=== PATIENT | male | born 1995 | race Caucasian/White ===

== ENCOUNTER → 2019-05-20 | Outpatient (CLI) | payer OTHER ==
[~2019-05-20] MED LIST: SULF-222 PO
--- NOTE | 2019-05-20 15:11 | Diagnostic Imaging Report ---
INDICATION: Injury to the right shoulder. TIME OF EXAM: 2:07 PM FINDINGS: Two views of the right clavicle were obtained. Acromioclavicular alignment is normal. There is no evidence of clavicular fracture or acromioclavicular separation. Glenohumeral alignment is normal. IMPRESSION: No acute bony abnormality is detected. Dictated by: Dictated on workstation # [id number]
== END ==
LOC: RAD 13:48
PROVIDERS: ATTEND Nurse Practitioner Family
DX: S49.91XA Unspecified injury of right shoulder and upper arm, initial encounter (principal)
CPT/HCPCS: 73000

== ENCOUNTER 2019-09-20 05:50 | Emergency (ER) | payer SELFPAY ==
[~2019-09-20] VITALS: Ht 175 cm; Wt 76.0 kg
[2019-09-20 06:44] LABS: BASOPHILS % (AUTO) 0 % (0-10); EOSINOPHILS # (AUTO) 0.2 10^3/uL (0.0-0.3); EOSINOPHILS % (AUTO) 2 % (0-10); HEMATOCRIT 45 % (40-54); HEMOGLOBIN 15.2 G/DL (13.3-17.7); LYMPHOCYTES # (AUTO) 1.5 X 10^3 (1.0-4.0); LYMPHOCYTES % (AUTO) 13 % (12-44); MEAN CORPUSCULAR HEMOGLOBIN 27 PG (25-34); MEAN CORPUSCULAR HGB CONC 34 G/DL (32-36); MEAN CORPUSCULAR VOLUME 80 FL (80-99); MEAN PLATELET VOLUME 11.1 FL (7.4-10.4); MONOCYTES # (AUTO) 0.7 X 10^3 (0.0-1.0); MONOCYTES % (AUTO) 6 % (0-12); NEUTROPHILS # (AUTO) 8.9 X 10^3 (1.8-7.8); NEUTROPHILS % (AUTO) 79 % (42-75); PLATELET COUNT 288 10^3/uL (130-400); RED CELL DISTRIBUTION WIDTH 13.5 % (10.0-14.5); WHITE BLOOD COUNT 11.4 10^3/uL (4.3-11.0)
[2019-09-20] MEDS ORDERED: FAMOTIDINE 20MG/2ML IV (PEPCID) IVP ONE (06:45)
[2019-09-20] MEDS ORDERED: ONDANSETRON 4 MG/2 ML (SDV) Z0FRAN IVP ONE (06:45)
[2019-09-20] MEDS ORDERED: fentaNYL INJECTION 100 MCG/2 ML AMP IVP ONE ×2 (06:45→08:45)
[2019-09-20 06:49] LABS: BILIRUBIN,URINE NEGATIVE (NEGATIVE); CLARITY,URINE CLEAR; COLOR,URINE YELLOW; GLUCOSE, URINE (UA) NEGATIVE (NEGATIVE); KETONES,URINE 2+ (NEGATIVE); LEUKOCYTE ESTERASE ,URINE NEGATIVE (NEGATIVE); NITRITE,URINE NEGATIVE (NEGATIVE); PROTEIN,URINE NEGATIVE (NEGATIVE)
[2019-09-20 06:55] LABS: ALANINE AMINOTRANSFERASE 16 U/L (0-55); ALBUMIN 4.9 GM/DL (3.2-4.5); ALKALINE PHOSPHATASE 74 U/L (40-136); BUN/CREATININE RATIO 9; CALCIUM 9.9 MG/DL (8.5-10.1); CARBON DIOXIDE 23 MMOL/L (21-32); CHLORIDE 106 MMOL/L (98-107); CREATININE SERUM 1.03 MG/DL (0.60-1.30); GFR ESTIMATED > 60; GLUCOSE 116 MG/DL (70-105); LIPASE 14 U/L (8-78); POTASSIUM 3.7 MMOL/L (3.6-5.0); SODIUM 141 MMOL/L (135-145)
[2019-09-20 07:16] LABS: AMORPHOUS SEDIMENT,UR RARE AMOR URATES /LPF; BACTERIA,URINE NEGATIVE /HPF; WBC,URINE 0-2 /HPF
--- NOTE | 2019-09-20 08:41 | Diagnostic Imaging Report ---
PROCEDURE: US Gallbladder. TECHNIQUE: Multiple real-time grayscale images were obtained over the right upper quadrant in various projections. INDICATION: Abdominal pain. COMPARISON: None. FINDINGS: Normal echogenicity of the liver with no focal mass or fluid collection. Normal hepatopetal flow in the main portal vein. Normal gallbladder without cholelithiasis or pericholecystic fluid. Gallbladder wall measures 0.4 cm. The common bile duct was not visualized. The pancreas is also mostly obscured. The aorta and IVC are patent. The right kidney measures 11.4 cm. No right renal mass, cyst or shadowing stone. Negative sonographic Goodson sign. No free fluid in the pelvis. IMPRESSION: Unremarkable right upper quadrant ultrasound. No acute findings in the gallbladder. The common bile duct is not well seen. Dictated by: Dictated on workstation # [id number]
[2019-09-20] MEDS ORDERED: ANTACID SUSP 30 ML UDC (MYLANTA) PO ONE (08:45)
[2019-09-20] MEDS ORDERED: LIDOCAINE 2% VISCOUS 15 ML UDC PO ONE (08:45)
[2019-09-20] MEDS ORDERED: TRAM-42 PO (09:38)
[2019-09-20] MEDS ORDERED: SUCR1TAB36 PO (09:38)
[2019-09-20] MEDS ORDERED: ONDA4TAB11 SL (09:38)
--- NOTE | 2019-09-20 09:38 | ED Abdominal Pain ---
General Chief Complaint: Abdominal/GI Problems Stated Complaint: N,V Nursing Triage Note: PT PRESENTS TO ED ROOM 6 C/O NAUSEA AND VOMITING FOR THE LAST WEEK WITH MIDLINE ABD. PAIN. PT STATES HIS SYMPTOMS ARE INTERMITTENT AND HAVE BEEN ONGOING FOR THE LAST FOUR MONTHS. PT HAS USED SEVERAL OTC MEDS TO TRY AND HELP WITH THE SYMPTOMS. PTVERBALIZES HE HASNT HELD ANY FOOD OR DRINK DOWN FOR THE LAST 12HRS Sepsis Screen: No Definite Risk Source of Information: Patient Exam Limitations: No Limitations History of Present Illness Date Seen by Provider: Sep 20, 2019 Time Seen by Provider: 06:37 Initial Comments This 23-year-old young man presents to emergency room with intermittent nausea, vomiting, and midline upper abdominal pain for the past 4 months. He had a severe exacerbation this morning and is writhing in pain. He has used [id number] antacids for about 2 weeks without resolution of pain. He has alternated between loose stools and constipation. No blood in his emesis or stools as noted. He is afebrile. He denies any excessive or recent alcohol use. Allergies and Home Medications Allergies Coded Allergies: No Known Drug Allergies (Unverified , 07/20/15) Home Medications Ondansetron 4 Mg Tab.rapdis, 4 MG SL Q4H PRN for NAUSEA/VOMITING Prescribed by: SHILO SMITH on 09/20/19 0938 Sucralfate 1 Gm Tablet, 1 GM PO QID Dissolve in about 10 ML water to slurry. Take 30 minutes before meals and at bedtime. Prescribed by: SHILO SMITH on 09/20/19 0938 Sulfamethoxazole/Trimethoprim 1 Each Tablet, 1 EACH PO BID Prescribed by: GERHARD WILLOUGHBY on 07/20/15 0851 Tramadol HCl 50 Mg Tablet, 50 MG PO Q6H PRN for PAIN-BREAKTHROUGH Prescribed by: SHILO SMITH on 09/20/19 0938 Patient Home Medication List Home Medication List Reviewed: Yes Review of Systems Review of Systems Constitutional: no symptoms reported EENTM: No Symptoms Reported Respiratory: No Symptoms Reported Cardiovascular: No Symptoms Reported Gastrointestinal: See HPI Genitourinary: No Symptoms Reported Musculoskeletal: no symptoms reported Skin: no symptoms reported Psychiatric/Neurological: No Symptoms Reported Endocrine: No Symptoms Reported Hematologic/Lymphatic: No Symptoms Reported Past Nkimofh-Tvacht-Vtfqva Hx Past Med/Social Hx: Reviewed Nursing Past Med/Soc Hx Patient Social History Alcohol Use: Occasionally Uses Recreational Drug Use: Yes Drug of Choice: MARIJUANA Smoking Status: Never a Smoker Recent Foreign Travel: No Contact w/Someone Who Travel: No Recent Infectious Disease Expo: No Physical Abuse: No Sexual Abuse: No Mistreated: No Fear: No Immunizations Up To Date Tetanus Booster (TDap): Unknown PED Vaccines UTD: Yes Past Medical History Surgeries: Yes (LT HAND REPAIR W/ PINS) Respiratory: No Cardiac: No Neurological: No Reproductive Disorders: No Genitourinary: No Gastrointestinal: No Musculoskeletal: No Endocrine: No HEENT: No Cancer: No Psychosocial: No Integumentary: No Blood Disorders: No Adverse Reaction/Blood Tranf: No Physical Exam Vital Signs Vital Signs - First Documented 09/20/19 06:03 Temp 36.8 Pulse 51 Resp 16 B/P (MAP) 131/87 (102) Pulse Ox 97 O2 Delivery Room Air Capillary Refill : Less Than 3 Seconds Height/Weight/BMI Height: 5'8" Weight: 160lbs. oz. 72.259894zt; 24.00 BMI Method:Stated General Appearance: WD/WN, moderate distress HEENT: PERRL/EOMI, normal ENT inspection, pharynx normal Neck: normal inspection Respiratory: lungs clear, normal breath sounds, no respiratory distress, no accessory muscle use Cardiovascular: regular rate, rhythm, no edema, no murmur Gastrointestinal: normal bowel sounds, soft, tenderness (Right upper quadrant and epigastrium) Extremities: normal inspection, no pedal edema Neurologic/Psychiatric: protection agent II-XII nml as tested, no motor/sensory deficits, alert, normal mood/affect, oriented x 3 Skin: normal color, warm/dry Progress/Results/Core Measures Results/Orders Lab Results Laboratory Tests Test 09/20/19 06:12 09/20/19 06:19 Range/Units Urine Color YELLOW Urine Clarity CLEAR Urine pH 6.0 5-9 Urine Specific Clyo >=1.030 1.016-1.022 Urine Protein NEGATIVE NEGATIVE Urine Glucose (UA) NEGATIVE NEGATIVE Urine Ketones 2+ H NEGATIVE Urine Nitrite NEGATIVE NEGATIVE Urine Bilirubin NEGATIVE NEGATIVE Urine Urobilinogen 0.2 < = 1.0 MG/DL Urine Leukocyte Esterase NEGATIVE NEGATIVE Urine RBC (Auto) NEGATIVE NEGATIVE Urine RBC NONE /HPF Urine WBC 0-2 /HPF Urine Crystals PRESENT H /LPF Urine Amorphous Sediment RARE FELICIA URATES H /LPF Urine Bacteria NEGATIVE /HPF Urine Casts NONE /LPF Urine Mucus SMALL H /LPF Urine Culture Indicated NO White Blood Count 11.4 H 4.3-11.0 10^3/uL Red Blood Count 5.61 4.35-5.85 10^6/uL Hemoglobin 15.2 13.3-17.7 G/DL Hematocrit 45 40-54 % Mean Corpuscular Volume 80 80-99 FL Mean Corpuscular Hemoglobin 27 25-34 PG Mean Corpuscular Hemoglobin Concent 34 32-36 G/DL Red Cell Distribution Width 13.5 10.0-14.5 % Platelet Count 288 130-400 10^3/uL Mean Platelet Volume 11.1 H 7.4-10.4 FL Neutrophils (%) (Auto) 79 H 42-75 % Lymphocytes (%) (Auto) 13 12-44 % Monocytes (%) (Auto) 6 0-12 % Eosinophils (%) (Auto) 2 0-10 % Basophils (%) (Auto) 0 0-10 % Neutrophils # (Auto) 8.9 H 1.8-7.8 X 10^3 Lymphocytes # (Auto) 1.5 1.0-4.0 X 10^3 Monocytes # (Auto) 0.7 0.0-1.0 X 10^3 Eosinophils # (Auto) 0.2 0.0-0.3 10^3/uL Basophils # (Auto) 0.0 0.0-0.1 10^3/uL Sodium Level 141 135-145 MMOL/L Potassium Level 3.7 3.6-5.0 MMOL/L Chloride Level 106 98-107 MMOL/L Carbon Dioxide Level 23 21-32 MMOL/L Anion Gap 12 5-14 MMOL/L Blood Urea Nitrogen 9 7-18 MG/DL Creatinine 1.03 0.60-1.30 MG/DL Estimat Glomerular Filtration Rate > 60 BUN/Creatinine Ratio 9 Glucose Level 116 H 70-105 MG/DL Calcium Level 9.9 8.5-10.1 MG/DL Corrected Calcium 8.5-10.1 MG/DL Total Bilirubin 1.0 0.1-1.0 MG/DL Aspartate Amino Transf (AST/SGOT) 17 5-34 U/L Alanine Aminotransferase (ALT/SGPT) 16 0-55 U/L Alkaline Phosphatase 74 40-136 U/L Total Protein 8.0 6.4-8.2 GM/DL Albumin 4.9 H 3.2-4.5 GM/DL Lipase 14 8-78 U/L My Orders Orders - SHILO ARTEAGA MD Cbc With Automated Diff (09/20/19 06:37) Comprehensive Metabolic Panel (09/20/19 06:37) Lipase (09/20/19 06:37) Ua Culture If Indicated (09/20/19 06:37) Ed Iv/Invasive Line Start (09/20/19 06:37) Fentanyl Injection (Sublimaze Injection (09/20/19 06:45) Ondansetron Injection (Zofran Injectio (09/20/19 06:45) Famotidine Injection (Pepcid Injection) (09/20/19 06:45) Us Gallbladder 20380 (09/20/19 07:21) Fentanyl Injection (Sublimaze Injection (09/20/19 08:45) Lidocaine 2% Viscous 15 Ml (Xylocaine Vi (09/20/19 08:45) Antacid Suspension (Mylanta Suspension (09/20/19 08:45) Medications Given in ED Current Medications Medications Dose Ordered Sig/Yusuf Route Start Time Stop Time Status Last Admin Dose Admin Al Hydrox/Mg Hydrox/Simethicone 30 ml ONCE ONCE PO 09/20/19 08:45 09/20/19 08:46 DC 09/20/19 08:38 30 ML Fentanyl Citrate 50 mcg ONCE ONCE IVP 09/20/19 08:45 09/20/19 08:46 DC 09/20/19 08:55 50 MCG Lidocaine HCl 15 ml ONCE ONCE PO 09/20/19 08:45 09/20/19 08:46 DC 09/20/19 08:38 15 ML Vital Signs/I&O 09/20/19 09/20/19 06:03 09:50 Temp 36.8 Pulse 51 67 Resp 16 18 B/P (MAP) 131/87 (102) 129/86 Pulse Ox 97 98 O2 Delivery Room Air Blood Pressure Mean: 102 Progress Progress Note : Progress Note Patient was initially treated with Zofran, Pepcid, and fentanyl. Gallbladder ultrasound was obtained and was unremarkable. Pain rebounded and was treated with GI cocktail which provided no relief. He was again treated with fentanyl. I discussed further options for workup including CT scan. Patient declines at this time citing lack of insurance as a reason. He is given a short course of tramadol to help manage the pain along with an aggressive antiacid and Carafate regimen. Follow-up was discussed. See discharge instructions. Diagnostic Imaging Diagonstic Imaging: Ultrasound Plain Films/CT/US/NM/MRI: abdomen Comments NAME: SHILO DUNBAR [facility] REC#: [id number] PT STATUS: DEP ER : 1995 PHYSICIAN: SHILO ARTEAGA MD ADMIT DATE: 09/20/19/ER Signed Date of Exam:09/20/19 US GALLBLADDER [id number] PROCEDURE: US Gallbladder. TECHNIQUE: Multiple real-time grayscale images were obtained over the right upper quadrant in various projections. INDICATION: Abdominal pain. COMPARISON: None. FINDINGS: Normal echogenicity of the liver with no focal mass or fluid collection. Normal hepatopetal flow in the main portal vein. Normal gallbladder without cholelithiasis or pericholecystic fluid. Gallbladder wall measures 0.4 cm. The common bile duct was not visualized. The pancreas is also mostly obscured. The aorta and IVC are patent. The right kidney measures 11.4 cm. No right renal mass, cyst or shadowing stone. Negative sonographic Goodson sign. No free fluid in the pelvis. IMPRESSION: Unremarkable right upper quadrant ultrasound. No acute findings in the gallbladder. The common bile duct is not well seen. Dictated by: Dictated on workstation # [id number] Dict: 09/20/1930 Trans: 09/20/19 1201 [id number] Interpreted by: LIBBY GONSALES MD Electronically signed by: LIBBY GONSALES MD 09/20/19 1201 Departure Impression Primary Impression: Upper abdominal pain Additional Impression: Nausea and vomiting Qualified Codes: R11.2 - Nausea with vomiting, unspecified Disposition: 01 HOME, SELF-CARE Condition: Improved Departure-Patient Inst. Decision time for Depature: 09:33 Referrals: JESS JACINTO BRETT D DO NO,LOCAL PHYSICIAN (PCP) Primary Care Physician Patient Instructions: Acute Abdomen (Belly Pain), Adult (DC) Add. Discharge Instructions: Complete the patient financial services coordinator paperwork from the hospital as soon as possible. Use double antiacid therapy including Pepcid (famotidine) 20 mg twice daily and Prilosec (omeprazole) 20 mg twice daily for the next month. Avoid the following: Eating large meals, eating close to bedtime, caffeine, carbonation, citrus fruits and juices, tomato products, alcohol, tobacco, chocolate, mints, fatty or greasy foods, NSAID medications such as ibuprofen or naproxen, spicy foods, or anything else you know irritates your stomach. You may use Tylenol (acetaminophen) up to 1000 mg every 6 hours as needed for pain. Add Ultram (tramadol) as prescribed for additional pain relief if needed. Do not take NSAID medications such as ibuprofen or naproxen. Start with a clear liquid diet today and gradually advance your diet with small quantities of bland food as tolerated. Use Zofran (ondansetron) as prescribed for nausea and vomiting. Follow-up with a primary care provider and a surgeon as soon as possible. You may need further studies such as endoscopy or CT scan to further evaluate your pain. Return to care if you have worsening symptoms despite these measures. All discharge instructions reviewed with patient and/or family. Voiced understanding. Scripts Ondansetron (Ondansetron Odt) 4 Mg Tab.rapdis 4 MG SL Q4H PRN for NAUSEA/VOMITING, #10 TAB Prov: SHILO ARTEAGA MD 09/20/19 Tramadol HCl (Ultram) 50 Mg Tablet 50 MG PO Q6H PRN for PAIN-BREAKTHROUGH, #10 TAB Prov: SHILO ARTEAGA MD 09/20/19 Sucralfate (Carafate) 1 Gm Tablet 1 GM PO QID, #120 TAB Dissolve in about 10 ML water to slurry. Take 30 minutes before meals and at bedtime. Prov: SHILO ARTEAGA MD 09/20/19 Work/School Note: Work Release Form Date Seen in the Emergency Department: Sep 20, 2019 Return to Work: Sep 21, 2019 Restrictions: No Restrictions SHILO ARTEAGA MD Sep 20, 2019 09:38
[2019-09-20 09:50] VITALS: BP 129/86
== END 2019-09-20 09:50 | disposition home or self-care (01) ==
LOC: EDUNIT# 05:50 → ER 05:53
DX: R10.11 Right upper quadrant pain (principal); R10.13 Epigastric pain; R11.2 Nausea with vomiting, unspecified
CPT/HCPCS: 36415; 76705; 80053; 81000; 83690; 85025